=== PATIENT | male | born 1955 | race Two or more races ===

== ENCOUNTER 2024-08-16 23:32 | Emergency (ER) | payer OTHER ==
[~2024-08-16] VITALS: Ht 172.7 cm; Wt 83.9 kg
[2024-08-17] MEDS ORDERED: LOSARTAN POTASS25 MG
[2024-08-17] MEDS ORDERED: HYDROCHLOROTH12.5 M2 (00:01)
[2024-08-17] MEDS ORDERED: ODEFSEY TABLET1 EACH (00:04)
[2024-08-17] MEDS ORDERED: 0.9 % SODIUM CHLORIDE 250 ML IV SCH (00:30)
[2024-08-17] MEDS ORDERED: 0.9 % SODIUM CHLORIDE 1,000 ML IV ONE (00:30)
[2024-08-17 01:10] LABS: BASO % 0.4 % (0.1-1.2); EOS # 0.07 (0.04-0.54); EOS % 0.8 % (0.7-7.0); HEMATOCRIT 46.4 % (40.1-51.0); HEMOGLOBIN 16.3 g/dL (13.7-17.5); LYMPH # 2.25 (1.18-3.74); LYMPH % 24.8 % (19.3-53.1); MEAN CORPUSCULAR HEMOGLOBIN 31.7 pg (25.6-32.2); MONO # 0.55 (0.24-0.82); MONO % 6.1 % (4.7-12.5); NEUT # 6.13 (1.56-6.13); NEUT % 67.5 % (34.0-71.1); PLATELET COUNT 250 K/uL (163-369); RED BLOOD COUNT 5.14 M/uL (4.63-6.08); RED CELL DISTRIBUTION WIDTH 13.5 % (11.6-14.4)
[2024-08-17 01:35] LABS: INR 1.02; PARTIAL THROMBOPLASTIN TIME 22.9 SECONDS (22.0-34.0); PROTHROMBIN TIME 11.1 SECONDS (9.0-11.5)
[2024-08-17 01:39] LABS: ALBUMIN 3.8 gm/dL (3.4-5.0); BILIRUBIN TOTAL 0.67 mg/dL (0.3-1.2); CALCIUM 9.1 mg/dL (8.5-10.1); CREATININE SERUM 1.79 mg/dL (0.70-1.30); GFR 38.18; GLOBULINA 3.5 G/DL (2.4-3.5); POTASSIUM 3.42 mEq/L (3.5-5.1); TOTAL PROTEIN 7.3 gm/dL (6.4-8.2)
[2024-08-17 02:08] LABS: PH,URINE 5.5 (5.0-8.0); URINE APPEARANCE Clear; URINE BILIRRUBIN Negative (NEGATIVE); URINE BLOOD Negative; URINE COLOR Yellow; URINE GLUCOSE Negative (NEGATIVE); URINE KETONE Trace (NEGATIVE); URINE LEUKOCYTE Trace; URINE NITRATE Negative; URINE PROTEIN Trace (NEGATIVE)
[2024-08-17 02:11] LABS: URINE BACTERIA 28.1 uL (0.0-1933); URINE CAST 7.65 uL (0.0-1.40); URINE RBC 2.9 uL (0.0-20.8); URINE WBC 10.2 uL (0.0-23.2)
[2024-08-17 02:32] LABS: URINE MUCUS SCANT
[2024-08-17 06:44] VITALS: BP 110/70; O2SAT 96
== END 2024-08-17 06:46 ==
LOC: ER 23:32
PROVIDERS: General Practice
DX: R55 Syncope and collapse (principal); I10 Essential (primary) hypertension; B20 Human immunodeficiency virus [HIV] disease